=== PATIENT | male | born 2000 | race African-American/Black ===

== ENCOUNTER 2023-08-27 01:09 | Emergency (ER) | payer OTHER, SELFPAY ==
--- NOTE | ~2023-08-27 | XR_ITS ---
EXAMINATION: XR chest 2V DATE: 08/27/2023 01:51 INDICATION: Chest pain TECHNIQUE: PA and lateral views of the chest are obtained. COMPARISON: 01/06/2009 FINDINGS: The lungs are free of acute opacities. No pleural effusion or pneumothorax. The cardiomedia stinal silhouette is normal. There are 19 degrees thoracic dextroscoliosis. IMPRESSION: 1. No acute cardiopulmonary abnormality. Reviewed, dictated and finalized at location F. R INSPECTOR
--- NOTE | 2023-08-27 01:09 | ECG_ITS ---
Measurements Intervals [place] Rate: 69 P: -4 ID: [id number] QRS: -4 QRSD: 102 T: 57 QT: 353 QTc: 380 Interpretive Statements SINUS RHYTHM INCOMPLETE RIGHT BUNDLE BRANCH BLOCK BASELINE ARTIFACT- I, III, AVL BORDERLINE ECG NO PREVIOUS ECG AVAILABLE FOR COMPARISON Electronically Signed On 08-27-2023 6:51:01 FLIGHT SIMULATOR TEACHER by Jose Mo D.O.
[2023-08-27 01:11] LABS: Troponin I < 0.012 ng/mL (0.000-0.034)
[2023-08-27 01:16] VITALS: BP 125/78; PULSE 76; RESP 20; TEMP 36.4; O2SAT 100
[2023-08-27 01:26] VITALS: BP 131/99; PULSE 73; RESP 15; O2SAT 98
[2023-08-27 01:41] LABS: Basophils Percent Auto 0.6 % (0.2-1.2); Eosinophils Absolute Auto 0.1 K/mm3 (0-0.3); Eosinophils Percent Auto 2.1 % (0-4.4); Hematocrit 41.9 % (42.0-52.0); Hemoglobin 13.7 g/dL (14.0-18.0); Immature Granulocyte Absolute 0.01 K/mm3 (0.00-0.031); Immature Granulocyte Percent A 0.2 % (0-0.5); Lymphocytes Absolute Auto 2.18 K/mm3 (0.9-3.2); Mean Corpuscular HGB Conc 32.7 g/dl (32-36); Mean Corpuscular Hemoglobin 27.3 pg (26-34); Mean Corpuscular Volume 83.5 fl (80-100); Mean Platelet Volume 9.4 fl (7.4-10.4); Monocytes Absolute Auto 0.3 K/mm3 (0.1-0.6); Monocytes Percent Auto 6.2 % (2.6-8.5); Neutrophils Absolute Auto 2.5 K/mm3 (1.3-6.7); Neutrophils Percent Auto 48.9 % (45.5-73.1); Platelet Count Result 323 k/mm3 (150-375); Red Blood Count 5.02 M/mm3 (4.6-6.20); Red Cell Distribution Width 13.3 % (11.5-14.5); White Blood Count 5.2 K/mm3 (4.5-10.0)
--- NOTE | 2023-08-27 01:48 | ED.CHESTPAIN ---
HPI - Chest Pain General Chief Complaint: Chest Pain Stated Complaint: CP Time Seen by Provider: 08/27/23 01:29 CDT History of Present Illness HPI narrative: Patient is a 22-year-old male with history of asthma here with chest pain. He states that he has been having intermittent chest pains over the last 1 week. They are located right-sided. He notes that they are associated with some shortness of breath and feeling of panic. He believes he may have undiagnosed anxiety and be experiencing panic attacks. He states that today around 5:00 p.m. he began having right-sided chest pain once again. He took a breathing treatment suspecting it could be attributed to his asthma. He notes that the pain initially went away for few minutes and then returned. The pain is now located in his mid chest. He denies any changes of the pain with positioning, deep breathing, exertion. He denies prior history of PE or DVT, no recent travels or long car rides. No recent surgeries or trauma. He denies personal or family history of heart attack. No history of sudden cardiac in his family at a young age. No associated diaphoresis or nausea. He denies any cough, congestion, fever, chills. Related Data Allergies Allergy/AdvReac Type Severity Reaction Status Date / Time No Known Drug Allergies Allergy Mild Verified 04/16/15 18:43 Grass Allergy Mild Uncoded 04/16/15 18:43 Shrimp Allergy Mild Uncoded 04/16/15 18:43 TREES Allergy Mild Uncoded 02/02/11 13:44 Review of Systems Review of Systems: All systems reviewed & are unremarkable except as noted in HPI and below Exam Narrative: GENERAL: Well-appearing, well-nourished, and in no acute distress. HEAD: Normocephalic, atraumatic. EYES: PERRLA and EOMI. ENT: Nares clear. Mucous membranes moist. NECK: Supple. CHEST: Clear to auscultation. No respiratory distress. HEART: Regular rate and rhythm. Normal peripheral pulses. ABDOMEN: Soft, nontender, nondistended. EXTREMITIES: Normal range of motion. No edema, no calf tenderness. SKIN: Warm, dry, no rash. NEURO: No focal deficits. Alert and oriented x3. PSYCH: Normal mood and affect. Course Course Emergency Course: Chart review performed. Patient here for chest pain. Patient is here for right sided chest pain since 1700. Triage vitals normal. No prior ED visits. Patient seen evaluated, nontoxic appearing. Will do ACS workup. PERC negative, PE unlikely. Lab work and imaging reviewed. CBC normal, CMP grossly normal, mild hypokalemia, will replete. Initial troponin is negative. Will do repeat troponin. Chest x-ray reviewed by myself, hyperinflation consistent with history of asthma, no pneumothorax, no consolidation. Repeat troponin negative. Patient re-evaluated, has had significant improvement of his chest pain. The results of pertinent diagnostic studies and exam findings were discussed. The patient?s provisional diagnosis and plan of care were discussed with the patient and present family. The patient and/or present family expressed understanding of the diagnosis and plan. The nurse was instructed to provide written instructions and appropriate follow-up information. The patient understands their need and responsibility to obtain additional follow-up as instructed. The risks of medications administered and prescribed were discussed with the patient and family present. Vital Signs Vital signs: Vital Signs Temperature 97.6 F 08/27/23 01:16 CDT Pulse Rate 76 08/27/23 01:16 CDT Respiratory Rate 20 08/27/23 01:16 CDT Blood Pressure 125/78 08/27/23 01:16 CDT Pulse Oximetry 100 08/27/23 01:16 CDT Oxygen Delivery Room Air 08/27/23 01:16 CDT Temperature 97.6 F 08/27/23 01:16 CDT Pulse Rate 73 08/27/23 01:26 CDT Respiratory Rate 15 08/27/23 01:26 CDT Blood Pressure 131/99 H 08/27/23 01:26 CDT Pulse Oximetry 98 08/27/23 01:26 CDT Oxygen Delivery Room Air 08/27/23 01:26 CDT MDM
[2023-08-27 01:59] LABS: Alanine Aminotransferase 21 U/L (6-50); Albumin Level 4.6 g/dL (3.5-5.1); Alkaline Phosphatase 66 U/L (38-126); Anion Gap 10 mmol/L (8-16); Aspartate Amino Transferase 22 U/L (17-59); Bilirubin,Total 0.5 mg/dL (0.2-1.3); Blood Urea Nitrogen 4 mg/dL (9-20); Calcium 9.4 mg/dL (8.4-10.2); Carbon Dioxide 24 mmol/L (22-30); Chloride 107 mmol/L (98-107); Estimated CRCL calculation 126 ml/min; Estimated Glomerular Filt Rate > 60; Glucose 96 mg/dL (65-110); Lipase 82 U/L (23-300); Potassium 3.2 mmol/L (3.4-5.0); Sodium 141 mmol/L (137-145)
[2023-08-27] MEDS: POTASSIUM BICARBONATE 25 MEQ TABEF 50 MEQ PO (03:03)
[2023-08-27 03:24] LABS: Prothrombin Time 13.9 Seconds (11.1-14.7)
[2023-08-27 03:28] LABS: Partial Thromboplastin Time 27.7 SECONDS (22.3-36.8)
[2023-08-27 03:58] LABS: Troponin I < 0.012 ng/mL (0.000-0.034)
[2023-08-27] MEDS: KETOROLAC 15 MG/ML VIAL (*BKC) IV PUSH (04:41)
[2023-08-27 04:42] VITALS: BP 130/80; PULSE 71; RESP 17; O2SAT 98
== END 2023-08-27 04:50 | disposition home or self-care (01) ==
PROVIDERS: Emergency Provider Student in an Organized Health Care Education/Training Program; PCP Family Medicine
DX: R07.89 Other chest pain (principal); E87.6 Hypokalemia; J45.909 Unspecified asthma, uncomplicated
CPT/HCPCS: 36415; 71046; 80053; 83690; 84484; 85025; 85610; 85730; 93005; 96374; 99284; A9270; J1885

== ENCOUNTER 2023-09-01 21:41 | Emergency (ER) | payer OTHER, SELFPAY ==
--- NOTE | ~2023-09-01 | XR_ITS ---
EXAMINATION: XR chest 2V DATE: 09/01/2023 22:14 INDICATION: Mid chest pain. TECHNIQUE: Frontal and lateral views of the chest were obtained. COMPARISON: Chest 2 views 08/27/2023 FINDINGS: There is no pneumonia, pleural effusion, or pneumothorax. The heart size is normal. IMPRESSION: 1. No acute cardiopulmonary disease. Reviewed, dictated and finalized at location E. D WASTE FACILITY OPERATOR
[2023-09-01 21:43] VITALS: BP 123/71; PULSE 76; RESP 17; TEMP 36.4; O2SAT 100
--- NOTE | 2023-09-01 21:43 | ECG_ITS ---
Measurements Intervals [place] Rate: 78 P: 65 RI: 148 QRS: -4 QRSD: 103 T: 52 QT: 331 QTc: 379 Interpretive Statements SINUS RHYTHM WITH SINUS ARRHYTHMIA INCOMPLETE RIGHT BUNDLE BRANCH BLOCK ST ELEVATION IN DIFFUSE LEADS, CONSIDER PERICARDITIS OR EARLY REPOLARIZATION ABNORMAL ABNORMAL ECG COMPARED TO ECG 08/27/2023 01:14:[address] NOW PRESENT [address] ELEVATION IN DIFFUSE LEADS, CONSIDER PERICARDITIS OR EARLY REPOLARIZATION NOW PRESENT Electronically Signed On 09-02-2023 6:57:31 TRANSFER AND PUMPHOUSE OPERATOR CHIEF by Jose Mo D.O.
[2023-09-01 21:54] VITALS: PULSE 72
[2023-09-01 21:57] VITALS: BP 111/83; PULSE 75; RESP 13; O2SAT 100
[2023-09-01 22:12] LABS: Basophils Percent Auto 0.4 % (0.2-1.2); Eosinophils Percent Auto 0.4 % (0-4.4); Hematocrit 42.8 % (42.0-52.0); Hemoglobin 13.8 g/dL (14.0-18.0); Immature Granulocyte Absolute 0.01 K/mm3 (0.00-0.031); Immature Granulocyte Percent A 0.2 % (0-0.5); Lymphocytes Absolute Auto 1.03 K/mm3 (0.9-3.2); Lymphocytes Percent Auto 20.7 % (18.3-44.2); Mean Corpuscular HGB Conc 32.2 g/dl (32-36); Mean Corpuscular Hemoglobin 27.5 pg (26-34); Mean Corpuscular Volume 85.3 fl (80-100); Mean Platelet Volume 9.5 fl (7.4-10.4); Monocytes Absolute Auto 0.4 K/mm3 (0.1-0.6); Monocytes Percent Auto 8.8 % (2.6-8.5); Neutrophils Absolute Auto 3.5 K/mm3 (1.3-6.7); Neutrophils Percent Auto 69.5 % (45.5-73.1); Platelet Count Result 307 k/mm3 (150-375); Red Blood Count 5.02 M/mm3 (4.6-6.20); Red Cell Distribution Width 13.5 % (11.5-14.5)
[2023-09-01 22:22] LABS: Alanine Aminotransferase 21 U/L (6-50); Albumin Level 4.7 g/dL (3.5-5.1); Alkaline Phosphatase 74 U/L (38-126); Anion Gap 11 mmol/L (8-16); Aspartate Amino Transferase 23 U/L (17-59); Bilirubin,Total 0.6 mg/dL (0.2-1.3); Blood Urea Nitrogen 6 mg/dL (9-20); Calcium 9.5 mg/dL (8.4-10.2); Carbon Dioxide 25 mmol/L (22-30); Chloride 104 mmol/L (98-107); Estimated CRCL calculation 116 ml/min; Estimated Glomerular Filt Rate > 60; Glucose 102 mg/dL (65-110); Lipase 78 U/L (23-300); Potassium 3.4 mmol/L (3.4-5.0); Sodium 140 mmol/L (137-145)
[2023-09-01 22:23] LABS: INR 1.1; Prothrombin Time 14.8 Seconds (11.1-14.7)
[2023-09-01 22:24] LABS: Partial Thromboplastin Time 27.4 SECONDS (22.3-36.8)
[2023-09-01 22:33] LABS: Troponin I < 0.012 ng/mL (0.000-0.034)
[2023-09-01] MEDS: KETOROLAC 15 MG/ML VIAL (*BKC) IV PUSH (22:51)
--- NOTE | 2023-09-01 23:50 | PC.NURSE ---
This RN assumed care of patient. This RN took patient report from RYAN Haji.
--- NOTE | 2023-09-02 00:06 | ED.GENADULT ---
HPI - General Adult General Chief complaint: Chest Pain Stated complaint: chest pain Time Seen by Provider: 09/01/23 22:23 History of Present Illness HPI narrative: Patient is a 22-year-old gentleman who presents the emergency department with chief complaint of chest pain. Patient reports that he started having some sharp pain and pressure feeling in his chest. The patient states going on for some time but has become constant over the last 24 hours. Patient states that the pain is not improved by anything reports it is worsened whenever he takes a deep breath. Patient reports that he also had some headache and nausea with it as well. Patient does report prior history of asthma but no prior history of connective tissue disorder Marfan's or other diagnosed protein C protein S deficiency or coagulation disorder. Related Data Allergies Allergy/AdvReac Type Severity Reaction Status Date / Time No Known Drug Allergies Allergy Mild Unknown Verified 09/01/23 21:42 Grass Allergy Mild Unknown Uncoded 09/01/23 21:58 Shrimp Allergy Mild Unknown Uncoded 09/01/23 21:58 TREES Allergy Mild Unknown Uncoded 09/01/23 21:58 Review of Systems Review of Systems: A 10 system review of systems was completed on the patient and is negative except for what is stated in the HPI. Nursing and ancillary documentation was reviewed. Exam Narrative: GENERAL: Well-appearing, well-nourished, and in no acute distress. HEAD: Normocephalic, atraumatic. EYES: PERRLA and EOMI. ENT: Nares clear, no rhinorrhea or epistaxis. Mucous membranes moist. NECK: Supple. CHEST: Clear to auscultation. No respiratory distress. HEART: Regular rate and rhythm. No murmur heard. Normal peripheral pulses. ABDOMEN: Soft, nontender, nondistended, normal active bowel sounds. EXTREMITIES: Normal range of motion. No edema. SKIN: Warm, dry, no rash. NEURO: No focal deficits. Alert and oriented x3. PSYCH: Normal mood and affect. Course Vital Signs Vital signs: Vital Signs Temperature 36.4 C L 09/01/23 21:43 Pulse Rate 76 09/01/23 21:43 Respiratory Rate 17 09/01/23 21:43 Blood Pressure 123/71 09/01/23 21:43 Pulse Oximetry 100 09/01/23 21:43 Oxygen Delivery Room Air 09/01/23 21:43 Temperature 36.4 C L 09/01/23 21:43 Pulse Rate 75 09/01/23 21:57 Respiratory Rate 13 09/01/23 21:57 Blood Pressure 111/83 09/01/23 21:57 Pulse Oximetry 100 09/01/23 21:57 Oxygen Delivery Room Air 09/01/23 21:43 Medical Decision Making MDM Narrative Medical decision making narrative: Differential diagnosis includes ACS, atypical chest pain, chest wall pain, pneumothorax Chest x-ray showed no evidence of pneumothorax no evidence of widened mediastinum Patient has equal pulses bilaterally Laboratory studies were obtained which were within normal limits including troponin was less than 0.012 Vital Signs Vital Signs: Vital Signs Temperature 36.4 C L 09/01/23 21:43 Pulse Rate 76 09/01/23 21:43 Respiratory Rate 17 09/01/23 21:43 Blood Pressure 123/71 09/01/23 21:43 Pulse Oximetry 100 09/01/23 21:43 Oxygen Delivery Room Air 09/01/23 21:43 Temperature 36.4 C L 09/01/23 21:43 Pulse Rate 75 09/01/23 21:57 Respiratory Rate 13 09/01/23 21:57 Blood Pressure 111/83 09/01/23 21:57 Pulse Oximetry 100 09/01/23 21:57 Oxygen Delivery Room Air 09/01/23 21:43 Lab Data 09/01/23 22:03 09/01/23 22:03 Labs: Lab Results 09/01/23 Range/Units 22:03 WBC 5.0 (4.5-10.0) K/mm3 RBC 5.02 (4.6-6.20) M/mm3 Hgb 13.8 L (14.0-18.0) g/dL Hct 42.8 (42.0-52.0) % MCV 85.3 (80-100) fl MCH 27.5 (26-34) pg MCHC 32.2 (32-36) g/dl RDW 13.5 (11.5-14.5) % Plt Count 307 (150-375) k/mm3 MPV 9.5 (7.4-10.4) fl Immature Gran % (Auto) 0.2 (0-0.5) % Neut % (Auto) 69.5 (45.5-73.1) % Lymph % (Auto) 20.7 (18.3-44.2) % [place] % (Auto) 8.8 H (2.6-8.5) % Eo
[2023-09-02] MEDS: BELLADONNA ALK/PHENOB ELIX 10 ML, MAG HYDROX/ALUMINUM HYD/SIMETH 30 ML, LIDOCAINE HCL 2... PO (00:30)
[2023-09-02 00:39] VITALS: PULSE 78; RESP 17; O2SAT 100
[2023-09-02 01:50] LABS: Troponin I < 0.012 ng/mL (0.000-0.034)
== END 2023-09-02 01:19 | disposition home or self-care (01) ==
PROVIDERS: Emergency Provider Emergency Medicine; PCP Family Medicine
DX: R07.89 Other chest pain (principal)
CPT/HCPCS: 36415; 71046; 80053; 83690; 84484; 85025; 85610; 85730; 93005; 96374; 99284; A9270; J1885

== ENCOUNTER 2024-01-16 08:06 | Emergency (ER) | payer OTHER, SELFPAY ==
[2024-01-16 08:14] VITALS: BP 110/68; PULSE 72; RESP 16; TEMP 37; O2SAT 99
--- NOTE | 2024-01-16 08:23 | ED.GENADULT ---
HPI - General Adult General Chief complaint: Nausea/Vomiting/Diarrhea Stated complaint: throwing up,nauseous Source: patient Mode of arrival: ambulatory Limitations: no limitations History of Present Illness HPI narrative: Patient presents for evaluation of nausea. Symptom onset this morning. He had one episode of vomiting. He called off of work today and needs a work excuse. He has some epigastric discomfort but denies abdominal pain per se. No fever, chills, diarrhea, constipation. He has a chronic cough following COVID several years ago. Cough is mild. His primary care provider referred him to pulmonology. No recent sick contacts to his knowledge. No hx of abdominal surgeries. No recent alcohol intake. Related Data Home Medications Medication Instructions Recorded Confirmed albuterol sulfate 90 mcg/actuation 2 puff inhalation Q4-6H 01/16/24 01/16/24 aerosol inhaler budesonide-formoterol HFA 160 1 puff inhalation DAILY 01/16/24 01/16/24 mcg-4.5 mcg/actuation aerosol inhaler (Symbicort) cetirizine 10 mg tablet 10 mg PO DAILY 01/16/24 01/16/24 montelukast 10 mg tablet 10 mg PO DAILY 01/16/24 01/16/24 Allergies Allergy/AdvReac Type Severity Reaction Status Date / Time No Known Drug Allergies Allergy Mild Unknown Verified 01/16/24 08:09 Grass Allergy Mild Unknown Uncoded 01/16/24 08:09 Shrimp Allergy Mild Unknown Uncoded 01/16/24 08:09 TREES Allergy Mild Unknown Uncoded 01/16/24 08:09 Review of Systems Review of Systems: CONSTITUTIONAL: Denies fever, chills, or sweats. EYES: Denies visual changes, redness, or discharge. ENT: Denies rhinorrhea, congestion, sore throat, or otalgia. CARDIOVASCULAR: Denies chest pain, palpitations, or edema. RESPIRATORY: Denies cough or dyspnea. GASTROINTESTINAL: Reports nausea and one episode of vomiting. Reports epigastric discomfort but denies abdominal pain per se. Denies diarrhea. GENITOURINARY: Denies dysuria or hematuria. SKIN: Denies rash or itching. MUSCULOSKELETAL: Denies back pain, joint pain, or myalgia. NEUROLOGIC: Denies headache, numbness, dizziness, or weakness. PSYCHIATRIC: Denies anxiety or depression. [facility] Past Medical History Medical History (Updated 01/16/24 @ 08:58 by NADINE SantanaP, ) Anxiety COVID Surgical History Surgical History No pertinent past surgical history Family History Family History Mother Family history non-contributory Social History Social History Smoking status: Current every day smoker Tobacco type: e-cigarettes/vaping Substance use: current Substance use type: marijuana Gender identity (if verbalized by the patient): Male Sexual Orientation (if Verbalized by the Patient): Straight or Heterosexual Spiritual care concerns: No Exam Narrative: GENERAL: Well-appearing, well-nourished, and in no acute distress. HEAD: Normocephalic, atraumatic. EYES: PERRLA and EOMI. ENT: Nares clear, no rhinorrhea or epistaxis. Mucous membranes moist. Oropharynx without tonsillar hypertrophy exudate or other lesions. Bilateral TMs pearly bernal nonbulging NECK: Supple. No adenopathy or masses. No carotid bruits or JVD CHEST: Clear to auscultation. No respiratory distress. No wheezes rales or rhonchi HEART: Regular rate and rhythm. No murmur heard. Normal peripheral pulses. ABDOMEN: Soft, epigastric tenderness without rebound or guarding. Abdomen is nondistended, normal active bowel sounds. EXTREMITIES: Normal range of motion. No edema. SKIN: Warm, dry, no rash. NEURO: No focal deficits. Alert and oriented x3. PSYCH: Normal mood and affect. Course Course Emergency Course: This is a 23-year-old male who presented for evaluation of nausea and and one episode of vomiting. COVID and flu were both negative. He nunn
== END 2024-01-16 09:12 | disposition home or self-care (01) ==
PROVIDERS: Emergency Provider Nurse Practitioner; PCP Family Medicine
DX: B34.9 Viral infection, unspecified (principal); Z20.822 Contact with and (suspected) exposure to COVID-19; F17.290 Nicotine dependence, other tobacco product, uncomplicated; Z86.16 Personal history of COVID-19
CPT/HCPCS: 87426; 87804; 99213; G0463

== ENCOUNTER 2024-05-14 12:54 | Emergency (ER) | payer OTHER, MEDICAID, SELFPAY ==
[2024-05-14 13:02] VITALS: BP 115/70; PULSE 64; RESP 16; TEMP 36.8; O2SAT 100
--- NOTE | 2024-05-14 13:09 | ED.URI ---
HPI - URI/Sore Throat General Chief Complaint: Upper Respiratory Infection Stated Complaint: Cough Time Seen by Provider: 05/14/24 13:10 Source: patient, RN notes reviewed and old records reviewed Mode of arrival: ambulatory Limitations: no limitations History of Present Illness HPI Narrative: Patient presents with complaints of dry cough and mildly sore throat that began yesterday. He reports that he is concerned about possible COVID-19, reports that he had a positive contact 2 days ago. He denies any fever, chills, sweats. Denies any body aches. Denies any nasal discharge. Denies any GI symptoms. He is requesting a work note for today. Related Data Home Medications Medication Instructions Recorded Confirmed albuterol sulfate 90 mcg/actuation 2 puff inhalation Q4-6H 01/16/24 05/14/24 aerosol inhaler budesonide-formoterol HFA 160 1 puff inhalation DAILY 01/16/24 05/14/24 mcg-4.5 mcg/actuation aerosol inhaler (Symbicort) cetirizine 10 mg tablet 10 mg PO DAILY 01/16/24 05/14/24 montelukast 10 mg tablet 10 mg PO DAILY 01/16/24 05/14/24 Allergies Allergy/AdvReac Type Severity Reaction Status Date / Time Grass Allergy Mild Unknown Uncoded 05/14/24 12:57 Shrimp Allergy Mild Unknown Uncoded 05/14/24 12:57 TREES Allergy Mild Unknown Uncoded 05/14/24 12:57 Review of Systems Review of Systems: All systems reviewed & are unremarkable except as noted in HPI and below Constitutional: Constitutional: Reports no additional constitutional complaints ENT: Reports system reviewed and no additional complaints, except as documented and Reports sore throat Cardiovascular: Cardiovascular: Reports no additional cardiovascular complaints Respiratory: Respiratory: Reports no additional respiratory complaints and Reports cough Gastrointestinal: Gastrointestinal: Reports no additional gastrointestinal complaints [facility] Past Medical History Medical History (Updated 05/14/24 @ 13:30 by Kimberly Martinez APRN) Anxiety COVID Surgical History Surgical History No pertinent past surgical history Family History Family History Mother Family history non-contributory Social History Social History Smoking status: Current every day smoker Tobacco type: e-cigarettes/vaping Substance use: current Substance use type: marijuana Gender identity (if verbalized by the patient): Male Sexual Orientation (if Verbalized by the Patient): Straight or Heterosexual Spiritual care concerns: No Exam Const: General: cooperative, no acute distress, alert and awake Orientation/consciousness: oriented to person, oriented to place and oriented to time HENMT: Head: normal to inspection Throat: posterior oropharynx normal Resp: Effort & Inspection: normal respiratory effort and able to speak in complete sentences Auscultation: clear to auscultation bilaterally, no crackles, no rales, no rhonchi and no wheezes Cardio: Palpation: normal PMI Rate: regular rate Rhythm: regular rhythm Heart sounds: S1 normal heart sound present and S2 normal heart sound present Neuro: General: oriented to person, oriented to place and oriented to time Cranial nerves: Yes CN's II-XII intact bilaterally Psych: Appearance: grossly normal Thought process: Normal thought process present Insight: Good insight present (Psych) Judgement: Good judgement present (Psych) Course Course Level of Care: Express Care Visit Vital Signs Vital signs: Vital Signs Temperature 98.3 F 05/14/24 13:02 Pulse Rate 64 05/14/24 13:02 Respiratory Rate 16 05/14/24 13:02 Blood Pressure 115/70 05/14/24 13:02 Pulse Oximetry 100 05/14/24 13:02 Oxygen Delivery Room Air 05/14/24 13:02 Temperature 98.3 F 05/14/24 13:02 Pulse Rate 64 05/14/24 13:02 Respiratory Rate 16
[2024-05-14 13:27] LABS: EDINFLUASCREEN Negative; EDINFLUBSCREEN Negative
== END 2024-05-14 13:35 | disposition home or self-care (01) ==
PROVIDERS: Emergency Provider Nurse Practitioner Family; PCP Family Medicine
DX: J06.9 Acute upper respiratory infection, unspecified (principal); Z20.822 Contact with and (suspected) exposure to COVID-19; F17.290 Nicotine dependence, other tobacco product, uncomplicated; F12.90 Cannabis use, unspecified, uncomplicated; Z86.16 Personal history of COVID-19
CPT/HCPCS: 87426; 87804; 99213; G0463

== ENCOUNTER 2024-05-20 10:13 | Emergency (ER) | payer OTHER, MEDICAID, SELFPAY ==
--- NOTE | 2024-05-20 10:18 | ED.URI ---
HPI - URI/Sore Throat General Chief Complaint: Upper Respiratory Infection Stated Complaint: COVID+ Time Seen by Provider: 05/20/24 10:30 Source: patient and RN notes reviewed Mode of arrival: ambulatory Limitations: no limitations History of Present Illness HPI Narrative: 23-year-old male presents with concern for positive self administered COVID test. Reports he started feeling bad yesterday and to go home COVID test that was positive last night. He reports nasal congestion rhinorrhea. Denies sore throat. MD elicited complaint: cough Related Data Home Medications Medication Instructions Recorded Confirmed albuterol sulfate 90 mcg/actuation 2 puff inhalation Q4-6H 01/16/24 05/14/24 aerosol inhaler budesonide-formoterol HFA 160 1 puff inhalation DAILY 01/16/24 05/14/24 mcg-4.5 mcg/actuation aerosol inhaler (Symbicort) cetirizine 10 mg tablet 10 mg PO DAILY 01/16/24 05/14/24 montelukast 10 mg tablet 10 mg PO DAILY 01/16/24 05/14/24 albuterol sulfate 2.5 mg/3 mL mg 05/20/24 (0.083 %) solution for nebulization fluoxetine 20 mg capsule mg 05/20/24 Allergies Allergy/AdvReac Type Severity Reaction Status Date / Time Grass Allergy Mild Unknown Uncoded 05/20/24 10:23 Shrimp Allergy Mild Unknown Uncoded 05/20/24 10:23 TREES Allergy Mild Unknown Uncoded 05/20/24 10:23 Review of Systems Review of Systems: CONSTITUTIONAL: Reports malaise, fever. EYES: Denies visual changes, redness, or discharge. ENT: Reports rhinorrhea, congestion, and sore throat. CARDIOVASCULAR: Denies chest pain, palpitations, or edema. RESPIRATORY: Reports cough. Denies dyspnea. GASTROINTESTINAL: Denies abdominal pain, nausea, vomiting, diarrhea SKIN: Denies rash or itching. MUSCULOSKELETAL: Denies myalgia. NEUROLOGIC: Denies headache. All systems reviewed & are unremarkable except as noted in HPI and below PMFSH Past Medical History Medical History (Updated 05/20/24 @ 10:38 by Caroline Pederson NP) Anxiety COVID Surgical History Surgical History No pertinent past surgical history Family History Family History Mother Family history non-contributory Social History Social History Smoking status: Current every day smoker Tobacco type: e-cigarettes/vaping Substance use: current Substance use type: marijuana Gender identity (if verbalized by the patient): Male Sexual Orientation (if Verbalized by the Patient): Straight or Heterosexual Spiritual care concerns: No Comments At time of signature, agree with nursing past medical, surgical, social and family history. There is no relevant family history pertinent to the presenting complaint Exam Narrative: GENERAL: Well-appearing, well-nourished, and in no acute distress. HEAD: Normocephalic EYES: PERRLA, conjunctivae clear ENT: Nares clear. Mucous membranes moist. TM pearly bernal with sharp light reflex bilaterally; no tragal tenderness. Oropharynx not erythematous without lesions. Tonsils not enlarged and without exudate, no drooling, no hoarseness, no trismus, uvula midline. NECK: Supple. No lymphadenopathy CHEST: Clear to auscultation, breath sounds equal. No wheezing, rhonchi, rales, or stridor. No respiratory distress, speaks in full sentences. HEART: Regular rate and rhythm. No murmur heard. SKIN: Warm, dry, no rash. NEURO: Alert and oriented x3. PSYCH: Normal mood and affect Course Course Emergency Course: Patient is aware of diagnosis, understands and agrees to treatment plan. Anticipatory guidance given. Patient agrees to follow-up as directed and is aware of reasons to seek care at the emergency department. Portions of this record may have been created with voice recognition software Level of Care: Express Care Visit Vital Signs Vital signs: Reviewed. MDM - URI/Sore Throat M
[2024-05-20 10:22] VITALS: BP 122/66; PULSE 89; RESP 16; TEMP 36.8; O2SAT 100
== END 2024-05-20 10:46 | disposition home or self-care (01) ==
PROVIDERS: Emergency Provider Nurse Practitioner; PCP Family Medicine
DX: U07.1 COVID-19 (principal); F17.290 Nicotine dependence, other tobacco product, uncomplicated; F12.90 Cannabis use, unspecified, uncomplicated
CPT/HCPCS: 99211; G0463